=== PATIENT | male | born 1940 | race Caucasian/White ===

== ENCOUNTER 2019-03-07 10:44 | Observation (INO) ==
[2019-03-07] MEDS ORDERED: BACITRACIN INJ 50,000 UNIT VIAL ONE (13:21)
[2019-03-07] MEDS ORDERED: BUPIVACAINE 0.25% 30 ML VIAL ONE (13:21)
[2019-03-07] MEDS ORDERED: LIDOCAINE HCL 1% 20 ML VIAL ONE (13:21)
--- NOTE | 2019-03-07 13:37 | History & Physical Bridge Note ---
Date of Service March 07, 2019 History & Physical Bridge Note I have examined the patient, reviewed the History & Physical and in the interval since the performance of the History & Physical I have noted the following changes of clinical significance: no changes noted
--- NOTE | 2019-03-07 13:38 | Pre Anesthesia Assessment ---
Date of Service March 07, 2019 Pre Sedation Assessment Vital Signs Temp Pulse Resp BP Pulse Ox 03/07/19 11:35 36.7 C 34 L 20 158/80 H 98 Cardiovascular + bradycardic Respiratory normal respiratory effort, lungs clear to auscultation Pre-Sedation Airway Assessment Smoking Status: Never smoker Hx Sleep Apnea: No Short, Thick Neck: No Thyromental Distance: > or= 3.5 Finger Breadths Oral Cavity: + WNL Mallampati Class: II ASA: ASA4 NPO Status Date of Last Intake of Fluids: 03/06/19 Date of Last Intake of Solid Food: 03/06/19 Procedure Planning Contraindications for Sedation: none Current Medications Reviewed: Yes Notes The planned sedation has been discussed with the patient. Informed Consent was obtained. I have identified the patient, determined the appropriateness of sedation and have assessed the patient immediately prior to the procedure. All medicine(s) and interventions are by my order.
[2019-03-07] MEDS ORDERED: MIDAZOLAM HCL 5 MG/ML 1 ML VIAL ONE (14:11)
[2019-03-07] MEDS ORDERED: CEFAZOLIN 250 MG/ML 1 GM VIAL ONE (14:11)
[2019-03-07] MEDS ORDERED: fentaNYL citrate 100 MCG/2 ML VIAL ONE ×2 (14:11→15:31)
[2019-03-07] MEDS ORDERED: MIDAZOLAM HCL 1 MG/ML 2ML VIAL ONE (15:31)
[2019-03-07] MEDS ORDERED: ENALAPRILAT 2.5 MG/2 ML 2ML VIAL ONE (16:05)
[2019-03-07] MEDS ORDERED: OXYCODONE/ACETAMINOPHEN 5mg/325mg TAB PO PRN (16:18)
[2019-03-07] MEDS ORDERED: ACETAMINOPHEN 325 MG TAB PO PRN (16:18)
--- NOTE | 2019-03-07 16:20 | Operative Report ---
Post Operative Report Pre & Post Diagnosis intermittent CHB and sinus bradycardia Operation Date: 03/07/19 13:00 <No data on this case meets the specified criteria> Procedure Operation Date: 03/07/19 13:00 Actual Procedures p Pacer with A/V Leads (Dual) - Nolvia Bauer DO s Venogram, Unilateral - Nolvia Bauer DO Surgeon Nolvia Bauer, Forest Fire Prevention Manager none Estimated Blood Loss 20 Findings Consistent with Post-Op Diagnosis Specimens none Description of Procedure see official report I attest to the content of the Intraoperative Record and any orders documented therein. Any exceptions are noted below.
--- NOTE | 2019-03-07 16:20 | Post Anesthesia Assessment ---
Date of Service March 07, 2019 Post Sedation Assessment Vital Signs Temp Pulse Resp BP Pulse Ox 03/07/19 11:35 36.7 C 34 L 20 158/80 H 98 Recovery Score Activity: Moves 4 extremities Respiration: Deep Breath/Cough Circulation: +/-20% PreAnes Value Consciousness: Fully Awake Oxygen Saturation: > 92% On Room Air Discharge Sedation Level of Care: Fast Track Phase II Post Sedation Plan On clinical assessment, the patient appears to have tolerated the sedation without complications. Patient is recovering as anticipated. Patient will continue to be monitored by nursing and may be discharged when sedation discharge criteria are met per below protocol. Upon Completions of procedure and additional 15 minutes continue every 5 minute vital signs and the P.A.R. score; then discharge to a Phase I or Fast Track to Phase II per the following guidelines: * Discharge Patient to appropriate Phase II area if PAR is 8 or greater or return to pre- procedure baseline. The post - procedure orders will be as directed. * If PAR score is less than 8 or not return to pre-procedure baseline then patient will follow Phase I monitoring till PAR is reached for Phase II. The Phase I may be done in procedure room or may call to secure a Phase I area. * If naloxone or flumazenil are used for reversal, hold in Phase I for continued monitoring from when last reversal dose was given for a minimum of 60 minutes or longer pending the nurse and/or physician discretion of patient condition before discharge to Phase II. Please call the Sedation Physician to re-evaluate and complete post-note for discharge to Phase II area. Do NOT discharge from procedure sedation or Phase 1 until post- sedation evaluation note is complete by procedure /sedation MD Sedation Discharge Instructions to be given to the patient at discharge to home.
[2019-03-07] MEDS ORDERED: LOVASTATIN 20 MG TAB PO SCH (21:00)
[2019-03-08] MEDS ORDERED: ONDANSETRON INJ 2 MG/ML 2 ML VIAL IV PRN (07:57)
--- NOTE | 2019-03-08 08:22 | XRay Report ---
XR chest 2V routine CLINICAL HISTORY: 78 years-old Male presenting with post implant. TECHNIQUE: PA and lateral views of the chest were obtained. COMPARISON: 02/10/2012. FINDINGS: There has been interval placement of a left subclavian pacer with 2 leads, one to the right and show appendix and one projecting in the region of the intra-atrial or intraventricular septum. The positio lindy of the second lead is atypical. Atherosclerosis of the aortic arch. Cardiac silhouette normal in size. Lungs are hyperinflated. No focal opacity. No pleural effusion or pneumothorax. Degenerative c hanges of the thoracic spine. Upper abdomen normal. IMPRESSION: 1. Possible atypical positioning of the second pacer lead, which may insert onto the intra-atrial or interventricular septum though expected to be at the right ventricular apex. Correlate clinically. 2. Underlying emphysema suspected. No focal infiltrate to suggest pneumonia. 3. No pneumothorax. The report will be called/faxed according to standard departmental protocol. Electronically signed by: John Angel M.D. 03/08/2019 8:21 AM
[2019-03-08] MEDS ORDERED: TAMSULOSIN HCL 0.4 MG CAP PO SCH (09:00)
[2019-03-08] MEDS ORDERED: lisinopriL 5 MG TAB PO SCH (09:00)
[2019-03-08] MEDS ORDERED: FINASTERIDE 5 MG TAB PO SCH (09:00)
[2019-03-08] MEDS ORDERED: MULTIVITAMIN TAB PO SCH (09:00)
--- NOTE | 2019-03-12 10:43 | Operative Report ---
DATE OF OPERATION: 03/07/2019 PREOPERATIVE DIAGNOSES: Intermittent complete heart block, sick sinus syndrome. POSTOPERATIVE DIAGNOSES: Intermittent complete heart block, sick sinus syndrome. PROCEDURE: Dual chamber rate responsive permanent pacemaker under fluoroscopic guidance along with peripheral venogram (the His bundle pacemaker). SURGEON: Nolvia Bauer DO ASSISTANTS: None. ANESTHESIA: Monitored conscious sedation administered under my supervision by Sharona Vasquez. Start time 14:19, end time 16:13. Total of 7 mg of Versed, 200 mcg of fentanyl. INTRAVENOUS FLUIDS: 50 mL. IV CONTRAST: 10 mL of isoview ANTIBIOTICS: Two grams of Ancef. BLOOD LOSS: 20 mL. FINDINGS: See below. DRAINS: None. INDICATIONS: This is a 78-year-old gentleman with past medical history for hypertension, aortic valve sclerosis, hyperlipidemia, diabetes, chronic kidney disease stage III, benign prostatic hypertrophy and recently diagnosed prostate cancer where he is on radiation therapy now. He has sinus bradycardia and first degree AV block and more recently wore a monitor that showed significant amount of bradycardia with a lot of intermittent complete heart block, so he was recommended a permanent pacemaker. CONSENT: Consent was obtained prior to the patient going into the electrophysiology lab. The patient was informed of the risks, benefits and alternatives of procedure. Risks include but not limited to sudden cardiac , cardiac arrhythmias, cerebrovascular accident, myocardial infarction, injury to the blood vessels, chamber of the heart, lungs, bleeding and infection. The patient understood these risks and agreed to the procedure as planned. Informed consent was obtained. DESCRIPTION OF THE PROCEDURE: The patient was brought into the electrophysiology lab in fasting state. He was connected to continuous cardiac monitoring. A timeout was performed to ensure patient and procedure correctly. The patient was prepped and draped over the left infraclavicular space in normal surgical standard fashion. He received prophylactic antibiotics prior to incision. Monitored conscious sedation given throughout the procedure for patient's comfort level. [place] precautions were maintained throughout the procedure. A 10 mL of 1% lidocaine, bupivacaine mixture were given in left deltopectoral groove. Incision was made in left deltopectoral groove. Blunt dissection was performed down to identify the cephalic vein; however, none could be identified, so peripheral venogram using 10 mL of contrast diluted in 10 mL of saline was followed by a 20 mL flush was used to identify the axillary vein and venous axillary access was obtained through a needlestick. A guidewire was inserted without any resistance. An 8-Zimbabwean sheath was inserted over the guidewire without any resistance. Dilator was removed and a second guidewire was inserted through the 8-Zimbabwean sheath to allow for retained venous access. Sheath was removed and then a 7-Zimbabwean sheath was inserted over one of the retained guidewires, then the His sheath was advanced into the right atrium over a Glidewire. The Glidewire and dilator removed and we did electrogram mapping of the His bundle to identify the His bundle region. I did at one point swapped out the sheath and placed a 9-Zimbabwean sheath in the deflectable inner sheath for His bundle; however, this seemed did not help me either, so I went back to the regular fixed form sheath. Ultimately, we found semi-decent His signals and I think it may have been more though a little bit of the right bundle potential, but it was the best place where I got adequate signaling, so the lead was screwed in and then the sheath was slit under fluoroscopic guidance. Then, I kept the larger sheath in, the 9-Zimbabwean sheath in and placed a 7-Zimbabwean sheath over the retained venous access through the axillary vein to do the right atrially. The right atrial lead was advanced into the right atrium appendage and there was adequate pacing and sensing thresholds and no diaphragmatic stimulation with high output pacing. The 7-Zimbabwean sheath was then peeled away. Then, the 9-Zimbabwean sheath was peeled away with the His lead. Both leads were secured to the pectoralis muscle with 0 silk suture. A pacemaker pocket was created using blunt dissection over the pectoralis muscle. The pocket was flushed with copious amounts of bacitracin saline wash and inspected for hemostasis. I did do a pursestring around the venous puncture site as there was some backbleeding. The device was then attached to the leads, making sure that the pins were in appropriate position, passed set screws and set screws were all tightened. The device was then placed in the pocket, making sure that the leads were lying flat beneath the device. A stay stitch using 0 silk suture was used to secure the pectoralis muscle. The incision was closed in 3-layer fashion with 2-0 Vicryl, interrupted 2-0 Vicryl, 3-0 Vicryl interrupted suture followed by 4-0 Monocryl running stitch and Dermabond was applied. EQUIPMENT: 1. Pulse generator is a Medtronic Leslie XT DR ALYSSA Guerra #[id number] Medtronic model number [id number]. 2. Right atrial lead Medtronic 5076-52 cm, serial number [id number]. 3. Right ventricular lead/His lead is a Medtronic, 3830-69 cm, serial number [id number]. IMPRESSION: Successful implantation of a dual chamber rate responsive permanent pacemaker with the RV lead over the distal His position secondary to intermittent complete heart block. PLAN: Monitor patient overnight, 12-lead ECG, chest x-ray. He is not allowed to lift left elbow or left shoulder for 1 month. He cannot lift more than 10 pounds with the left arm for 2 weeks. He is to keep the outer pressure dressing on for 2 days and he can shower and let water run over the micropore Dermabond dressing and he will follow up with me in 6 months. POSTOPERATIVE TESTING: Right atrial lead: P-wave 3.3 millivolts, impedance 532 ohms, threshold 0.5 volts at 0.4 milliseconds. His bundle/RV lead is R waves 3.6 millivolts, impedance 551 ohms, threshold 1 volt at 1 milliamp. I attest to the content of the Intraoperative Record and any orders documented therein. Any exceptions are noted below. MICHAELD
--- NOTE | 2019-03-14 10:52 | Discharge Summary ---
Date of Service March 08, 2019 Admission HPI Per Admitting Provider pt admitted for pacemaker due to intermittent CHB Admission Exam Per Admitting Provider aaox3, NAD NC/AT, EOMI Supple No JVD Nrl S1/S2, No murmur CTA b/l no w/r/r soft nt/nd no LE edema b/l skin intact no focal deficits Principal Diagnosis intermittent CHB s/p HIS bundle ppm Discharge Exam aaox3, NAD NC/AT, EOMI Supple No JVD Nrl S1/S2, No murmur CTA b/l no w/r/r soft nt/nd no LE edema b/l skin intact no focal deficits left pectoral incision intact, no hematoma mild ecchymosis ENMT Mallampati Class: II Respiratory normal respiratory effort, lungs clear to auscultation Cardiovascular Rate/Rhythm: + bradycardic Discharge Data Allergies Allergy/AdvReac Type Severity Reaction Status Date / Time No Known Allergies Allergy Unverified 03/27/12 10:11 Procedures Performed Operation Date: 03/07/19 13:00 Actual Procedures p Pacer with A/V Leads (Dual) - Nolvia Bauer DO s Venogram, Unilateral - Nolvia Bauer DO Ordered Studies CXR: No PTX, leads in position ECG: -His bundle paced Pacemaker Interrogation: Normal and stable lead testing since implant 03/07/19 06:39 CL Cath Imgs for PACS use only Routine 03/07/19 14:15 EP Lab Images for PACS ONCE Hospital Course (1) Intermittent complete heart block: Total Time Total Time Spent Total Time Spent (In Minutes): 30 Total Time Includes: Examination of the Patient, Discharge Planning, Medication Reconciliation and Other Discharge Plan Discharge Items Patient Disposition: Home - Self-Care Reason For Visit: Bradycardia, Intermittent Heart Block Discharge Diagnosis: intermittent chb s/p his bundle ppm Activity: Resume your previous activity Activity Comment: do not raise the left elbow over the left shoulder for 1 month Lifting: No more than 10 pounds Lifting Comment: do not lift more than 10 pounds with the left arm for 2 weeks Bathing: Keep incision dry Bathing Comment: can shower friday 03/09 let water run over the white dressing Sexual Activity: After two weeks Driving/Machine Use: Resume 1 day after discharge Non-emergency contact: [employer] Call non-emergency contact if: you have any medication questions Follow-up/Referrals: Reji Garner V., DO [Primary Care Provider] - Diet: Heart Healthy Addtl Attending Provider Instructions: keep brown pressure dressing on until tuesday try to keep the white dressing on until wound check next week if you notice any concerns at the incision site call my office immediately Pending Studies at Discharge: No Stand-Alone Forms: My [facility] Medications and DC Order Prescriptions: Continued LOVASTATIN (MEVACOR) 40 MG tablet 40 mg PO HS Qty: 0 RF: 0 multivitamin Tablet 1 tab PO DAILY RF: 0 lisinopril 5 mg Tablet 5 mg PO DAILY RF: 0 finasteride 5 mg Tablet 5 mg PO DAILY RF: 0 Flomax 0.4 mg PO DAILY RF: 0 Discharge Orders: Discharge Order (Routine); Ordered 03/08/19 Ordered By: Nolvia Bauer Admission Data Admit Date/Time: 03/07/19 14:53 Attending Provider: Nolvia Bauer Admit Provider: Nolvia Bauer Primary Care Provider: Reji Garner V. Other Interventions: Discharge Summary Assessment (RN) Last Done: 03/08/19 09:44 DC Date/Time DO NOT enter until pt leaves facility: 03/08/19 10:14
== END 2019-03-08 10:14 | disposition home or self-care (01) ==
LOC: 2S 10:44 → EP 10:44